=== PATIENT | female | born 1980 | race African-American/Black ===

== ENCOUNTER 2016-04-18 04:50 | Emergency (ER) | payer BC, OTHER ==
[~2016-04-18] VITALS: Ht 170.2 cm; Wt 80.7 kg
[~2016-04-18 04:50] MED LIST: ACCUNEB SO1.25 MG/1 INH; NORFLEX100 MG PO; TRAMADOL 50 MG50 MG PO; TRINATE TABLET1 TAB PO; ZANTAC 150MG T150 MG PO
[2016-04-18 05:37] LABS: ABSOLUTE NEUTROPHILS 8.1 thou/uL (1.4-8.2); BASOPHILS 0.4 % (0.0-2.0); HEMATOCRIT 40.3 % (37.0-47.0); HEMOGLOBIN 13.5 gm/dL (12.0-15.0); LYMPHOCYTES 9.8 % (24.0-44.0); MCHC 33.6 % (28.0-37.0); MCV 95.4 fL (80.0-100.0); MONOCYTES 4.1 % (1.0-8.0); PLATELET COUNT 250 thou/uL (150-400); POLYS 85.7 % (36.0-66.0); RBC 4.22 mil/uL (4.20-5.00); RDW 13.4 % (10.5-14.5); WBC 9.5 thou/uL (4.0-11.0)
[2016-04-18 05:41] LABS: CALCIUM 9.1 mg/dL (8.5-10.1); CREATININE 0.9 mg/dL (0.6-1.3); POTASSIUM 3.4 mmol/L (3.5-5.1)
[2016-04-18 05:45] LABS: DIRECT BILIRUBIN 0.1 mg/dL (<0.1-0.3); TOTAL BILIRUBIN 0.4 mg/dL (<0.1-1.0); TOTAL PROTEIN 7.8 g/dL (6.4-8.2)
[2016-04-18 05:52] LABS: MANUAL DIFF NO
[2016-04-18] MEDS ORDERED: BENTYL 20 MG TA20 M1 PO (07:39)
[2016-04-18] MEDS ORDERED: ONDANSETRON HCL4 M2 PO (07:39)
[2016-04-18 07:57] LABS: URINE BILIRUBIN NEGATIVE (Negative); URINE BLOOD 1+ (Negative); URINE COLOR YELLOW; URINE GLUCOSE-RANDOM* NEGATIVE (Negative); URINE KETONES 3+ (Negative); URINE LEUKOCYTES-REFLEX NEGATIVE (Negative); URINE PROTEIN (DIPSTICK) NEGATIVE (Negative); URINE SPECIFIC GRAVITY 1.025 (1.003-1.035); URINE UROBILINOGEN 0.2 E.U./dl (0.2-1.0)
[2016-04-18 08:09] LABS: SQUAMOUS >10 Many /LPF (0-3)
[2016-04-18 08:10] LABS: CASTS None Seen /LPF (None Seen); CRYSTALS None Seen /LPF (None Seen); URINE RBC 3-10 Few /HPF (0-2); URINE WBC-REFLEX 0-5 Rare /HPF (0-5)
[2016-04-18 08:14] LABS: AMP/METHAMP Negative (Negative); BARBITURATES Negative (Negative); BENZODIAZEPINES Negative (Negative); COCAINE Negative (Negative); METHADONE Negative (Negative); OPIATES Negative (Negative); PCP Negative (Negative); THC POSITIVE (Negative)
[2016-04-18 09:31] VITALS: BP 126/75
== END 2016-04-18 09:31 | disposition home or self-care (01) ==
LOC: ER 04:50
PROVIDERS: Emergency Medicine
DX: R10.31 Right lower quadrant pain (principal); G43.A0 Cyclical vomiting, in migraine, not intractable; F12.90 Cannabis use, unspecified, uncomplicated; R19.7 Diarrhea, unspecified; E86.0 Dehydration

== ENCOUNTER 2016-09-03 16:58 | Emergency (ER) | payer BC, OTHER ==
[~2016-09-03] VITALS: Ht 170.2 cm; Wt 73.0 kg
[~2016-09-03 16:58] MED LIST changes: +BENTYL 20 MG TA20 M1 PO; +ONDANSETRON HCL4 M2 PO
[2016-09-03 17:37] LABS: HEMOGLOBIN 13.3 gm/dL (12.0-15.0); MCH 32.5 pg (26.0-34.0); PLATELET COUNT 236 thou/uL (150-400); RBC 4.08 mil/uL (4.20-5.00); WBC 7.2 thou/uL (4.0-11.0)
[2016-09-03 17:40] LABS: MANUAL DIFF YES
[2016-09-03 17:49] LABS: ALBUMIN 3.8 g/dL (3.4-5.0); CALCIUM 8.9 mg/dL (8.5-10.1); CREATININE 0.8 mg/dL (0.6-1.0); TOTAL BILIRUBIN 0.6 mg/dL (<0.1-1.0); TOTAL PROTEIN 7.6 g/dL (6.4-8.2)
[2016-09-03 17:51] LABS: POTASSIUM 2.8 mmol/L (3.5-5.1)
[2016-09-03] MEDS ORDERED: POTASSIUM20 PO (17:57)
[2016-09-03] MEDS ORDERED: PROMS25 WY RECTAL (17:57)
[2016-09-03 18:05] LABS: ABSOLUTE NEUTROPHILS 3.5 thou/uL (1.4-8.2); ANISOCYTOSIS 1+; TOTAL CELL COUNT 100
[2016-09-03 18:28] VITALS: BP 139/75
== END 2016-09-03 18:56 | disposition home or self-care (01) ==
LOC: ER 16:58
PROVIDERS: Emergency Medicine
DX: O21.0 Mild hyperemesis gravidarum (principal); O26.891 Other specified pregnancy related conditions, first trimester; E87.6 Hypokalemia; J45.909 Unspecified asthma, uncomplicated; Z88.1 Allergy status to other antibiotic agents; Z88.8 Allergy status to other drugs, medicaments and biological substances

== ENCOUNTER 2016-10-20 21:23 | Emergency (ER) | payer BC, OTHER ==
[~2016-10-20] VITALS: Ht 170.2 cm; Wt 68.0 kg
[~2016-10-20 21:23] MED LIST changes: +POTASSIUM20 PO; +PROMS25 WY RECTAL
[2016-10-20 22:11] LABS: ABSOLUTE NEUTROPHILS 3.7 thou/uL (1.4-8.2); BASOPHILS 0.8 % (0.0-2.0); EOSINOPHILS 5.3 % (0.0-3.0); HEMATOCRIT 34.5 % (37.0-47.0); LYMPHOCYTES 29.2 % (24.0-44.0); MCH 32.5 pg (26.0-34.0); MCHC 34.8 g/dL (28.0-37.0); MCV 93.3 fL (80.0-100.0); MONOCYTES 9.8 % (1.0-8.0); PLATELET COUNT 256 thou/uL (150-400); POLYS 54.9 % (36.0-66.0); RDW 12.7 % (10.5-14.5); WBC 6.7 thou/uL (4.0-11.0)
[2016-10-20 22:13] LABS: MANUAL DIFF NO
[2016-10-20 22:31] LABS: CALCIUM 8.7 mg/dL (8.5-10.1); CREATININE 0.6 mg/dL (0.6-1.0); POTASSIUM 3.3 mmol/L (3.5-5.1)
[2016-10-21 00:23] VITALS: BP 146/87
== END 2016-10-21 00:24 | disposition home or self-care (01) ==
LOC: ER 21:23
PROVIDERS: Emergency Medicine
DX: O20.0 Threatened abortion (principal); O44.11 Complete placenta previa with hemorrhage, first trimester; J45.909 Unspecified asthma, uncomplicated; Z3A.13 13 weeks gestation of pregnancy; Z98.890 Other specified postprocedural states; Z88.1 Allergy status to other antibiotic agents; Z88.8 Allergy status to other drugs, medicaments and biological substances

== ENCOUNTER 2017-07-14 18:59 | Emergency (ER) | payer BC, OTHER ==
[~2017-07-14] VITALS: Ht 170.2 cm; Wt 82.6 kg
[2017-07-14] MEDS ORDERED: VENTOLIN HFA 1818 GM INH (19:32)
[2017-07-14 20:36] LABS: URINE BILIRUBIN NEGATIVE (Negative); URINE BLOOD NEGATIVE (Negative); URINE CLARITY CLEAR; URINE COLOR YELLOW; URINE GLUCOSE-RANDOM* NEGATIVE (Negative); URINE KETONES 1+ (Negative); URINE LEUKOCYTES-REFLEX NEGATIVE (Negative); URINE NITRITE-REFLEX NEGATIVE (Negative); URINE PROTEIN (DIPSTICK) NEGATIVE (Negative); URINE UROBILINOGEN 0.2 E.U./dl (0.2-1.0)
[2017-07-14 20:53] LABS: ABSOLUTE NEUTROPHILS 3.2 thou/uL (1.4-8.2); BASOPHILS 0.2 % (0.0-2.0); EOSINOPHILS 9.3 % (0.0-3.0); HEMATOCRIT 38.9 % (37.0-47.0); HEMOGLOBIN 13.3 gm/dL (12.0-15.0); LYMPHOCYTES 37.1 % (24.0-44.0); MCH 31.7 pg (26.0-34.0); MCHC 34.2 g/dL (28.0-37.0); MCV 92.7 fL (80.0-100.0); MONOCYTES 9.7 % (1.0-8.0); PLATELET COUNT 241 thou/uL (150-400); POLYS 43.7 % (36.0-66.0); WBC 7.3 thou/uL (4.0-11.0)
[2017-07-14 21:02] LABS: CALCIUM 8.7 mg/dL (8.5-10.1); CREATININE 0.9 mg/dL (0.6-1.0); POTASSIUM 3.6 mmol/L (3.5-5.1)
[2017-07-14 21:08] LABS: ALBUMIN 3.7 g/dL (3.4-5.0); TOTAL BILIRUBIN 0.4 mg/dL (<0.1-1.0); TOTAL PROTEIN 7.2 g/dL (6.4-8.2)
[2017-07-14] MEDS ORDERED: FLEXERIL PO (22:26)
[2017-07-14 23:29] VITALS: BP 129/69
== END 2017-07-14 23:30 | disposition home or self-care (01) ==
LOC: ER 18:59
PROVIDERS: Emergency Medicine
DX: M54.5 Low back pain (principal); J45.909 Unspecified asthma, uncomplicated; Z88.1 Allergy status to other antibiotic agents

== ENCOUNTER → 2017-09-07 | Emergency (ER) | payer BC, OTHER ==
[~2017-09-07] VITALS: Ht 172.7 cm; Wt 79.8 kg
[~2017-09-07] MED LIST changes: +FLEXERIL PO; +PHENERGAN 25 MG25 M1 PO; +VENTOLIN HFA 1818 GM INH; +ZOFRAN4 MG PO
[2017-09-07 10:55] LABS: ABSOLUTE NEUTROPHILS 8.6 thou/uL (1.4-8.2); BASOPHILS 0.3 % (0.0-2.0); EOSINOPHILS 0.1 % (0.0-3.0); HEMATOCRIT 43.6 % (37.0-47.0); HEMOGLOBIN 14.9 gm/dL (12.0-15.0); LYMPHOCYTES 10.1 % (24.0-44.0); MCH 32.3 pg (26.0-34.0); MCHC 34.2 g/dL (28.0-37.0); MCV 94.3 fL (80.0-100.0); MONOCYTES 5.1 % (1.0-8.0); PLATELET COUNT 246 thou/uL (150-400); POLYS 84.4 % (36.0-66.0); RBC 4.63 mil/uL (4.20-5.00); WBC 10.2 thou/uL (4.0-11.0)
[2017-09-07 11:40] LABS: CALCIUM 9.6 mg/dL (8.5-10.1); CREATININE 0.8 mg/dL (0.6-1.0); POTASSIUM 4.1 mmol/L (3.5-5.1)
[2017-09-07 11:45] LABS: ALBUMIN 4.1 g/dL (3.4-5.0); TOTAL BILIRUBIN 0.5 mg/dL (<0.1-1.0); TOTAL PROTEIN 8.2 g/dL (6.4-8.2)
[2017-09-07 12:58] LABS: URINE BLOOD TRACE (Negative); URINE CLARITY CLEAR; URINE COLOR YELLOW; URINE GLUCOSE-RANDOM* NEGATIVE (Negative); URINE KETONES 3+ (Negative); URINE LEUKOCYTES-REFLEX NEGATIVE (Negative); URINE NITRITE-REFLEX NEGATIVE (Negative); URINE PROTEIN (DIPSTICK) 1+ (Negative); URINE SPECIFIC GRAVITY >= 1.030 (1.005-1.035); URINE UROBILINOGEN 0.2 E.U./dl (0.2-1.0)
[2017-09-07 13:00] LABS: ICTOTEST (BILI CONFIRMATORY) Negative (Negative); URINE BILIRUBIN NEGATIVE (Negative)
[2017-09-07 13:11] LABS: BACTERIA-REFLEX None Seen /HPF (None Seen); CASTS None Seen /LPF (None Seen); CRYSTALS None Seen /LPF (None Seen); SQUAMOUS >10 Many /LPF (0-3); URINE RBC 0-2 Rare /HPF (0-2); URINE WBC-REFLEX 0-5 Rare /HPF (0-5)
[2017-09-07 14:12] VITALS: BP 132/86
== END ==
LOC: ER 10:03
PROVIDERS: Emergency Medicine
DX: K52.9 Noninfective gastroenteritis and colitis, unspecified (principal); J45.909 Unspecified asthma, uncomplicated; Z88.1 Allergy status to other antibiotic agents

== ENCOUNTER 2020-01-20 08:57 | Emergency (ER) | payer OTHER ==
[~2020-01-20] VITALS: Ht 170.2 cm; Wt 65.8 kg
[2020-01-20] MEDS ORDERED: FLEXERIL PO (10:09)
[2020-01-20] MEDS ORDERED: IBUPROFEN 600600 M1 PO (10:09)
[2020-01-20 10:26] VITALS: BP 123/73
== END 2020-01-20 10:31 | disposition home or self-care (01) ==
LOC: ER 08:57
DX: M62.830 Muscle spasm of back (principal); J45.909 Unspecified asthma, uncomplicated; Z88.5 Allergy status to narcotic agent; Z88.8 Allergy status to other drugs, medicaments and biological substances; Z98.890 Other specified postprocedural states

== ENCOUNTER 2020-10-10 09:04 | Emergency (ER) | payer OTHER ==
[~2020-10-10] VITALS: Ht 172.7 cm; Wt 64.4 kg
[~2020-10-10 09:04] MED LIST changes: +IBUPROFEN 600600 M1 PO
[2020-10-10] MEDS ORDERED: FLEXERIL PO (11:27)
[2020-10-10] MEDS ORDERED: IBUPROFEN 600600 M1 PO (11:27)
[2020-10-10 12:05] VITALS: BP 141/102
== END 2020-10-10 12:09 | disposition home or self-care (01) ==
LOC: ER 09:04
DX: S46.912A Strain of unspecified muscle, fascia and tendon at shoulder and upper arm level, left arm, initial encounter (principal); S16.1XXA Strain of muscle, fascia and tendon at neck level, initial encounter; S39.011A Strain of muscle, fascia and tendon of abdomen, initial encounter; J45.909 Unspecified asthma, uncomplicated; Z88.1 Allergy status to other antibiotic agents; X50.9XXA Other and unspecified overexertion or strenuous movements or postures, initial encounter; Y93.89 Activity, other specified; Y92.89 Other specified places as the place of occurrence of the external cause; Y99.8 Other external cause status